=== PATIENT | male | born 1980 | race Caucasian/White ===

== ENCOUNTER 2021-04-07 10:27 | Emergency (ER) | payer OTHER, SELFPAY ==
[2021-04-07 10:45] VITALS: BP 128/86; PULSE 94; RESP 18; TEMP 35.7; O2SAT 99
--- NOTE | 2021-04-07 11:36 | ED_ITS ---
HPI - Eye Problem General Chief complaint: Eye Problems Stated complaint: Foreign object in lt eye Source: patient and RN notes reviewed Limitations: no limitations History of Present Illness HPI Narrative: The patient, who does not wear eyeglasses/contacts, presents with left eye discomfort. States he has a couple day history of left eye discomfort that began gradually as he walked outside. He complains of mild foreign body sensation that is migratory and went from the upper to lower lid. No injury, photophobia, discharge; symptoms are unimproved with OTC preps like eye flush. Related Data Home Medications Medication Instructions Recorded Confirmed Pepcid 04/07/21 amlodipine 04/07/21 atorvastatin 04/07/21 lisinopril 20 mg PO DAILY 04/07/21 04/07/21 Allergies Allergy/AdvReac Type Severity Reaction Status Date / Time No Known Allergies Allergy Verified 04/07/21 11:00 Review of Systems Review of Systems: General/Constitutional: No weight loss,fever Eyes: N0: Redness,discharge Ears/Nose/Throat: No: Epistaxis,ear discharge Respiratory: Denies: Hemoptysis Gastrointestinal: No Vomiting, Bleeding-rectal Skin: No Lumps, eruption Neurologic: No Focal Weakness,Sz Hematologic: Denies: Petechiae/Purpura Psychiatric: No: Suicida ideationl All Other Systems: Reviewed and Negative [facility] Comments At time of signature, agree with nursing past medical, surgical, social and family history. There is no relevant family history pertinent to the presenting complaint Exam Narrative: General Appearance: Well appearing, EYE: PERRLA , [id number] normal, EOMI, Lens normal, Normal corneas ,no fluorescein uptake, anterior chamber deep, Conjunctiva injection, no FB on double lid eversion Ears: External ear normal, Auditory canal normal Nose: Normal nose, Nares clear Mouth/Throat: Normal appearing, Normal lips, Supple, No adenopathy Respiratory: Airway patent, No respiratory distress Skin: Warm, Dry Neurological: A&O x3, Normal affect Course Vital Signs Vital signs: Vital Signs Temperature 96.3 F L 04/07/21 10:45 Pulse Rate 94 04/07/21 10:45 Respiratory Rate 18 04/07/21 10:45 Blood Pressure 128/86 04/07/21 10:45 Pulse Oximetry 99 04/07/21 10:45 Temperature 96.3 F L 04/07/21 10:45 Pulse Rate 94 04/07/21 10:45 Respiratory Rate 18 04/07/21 10:45 Blood Pressure 128/86 04/07/21 10:45 Pulse Oximetry 99 04/07/21 10:45 Discharge Plan Discharge Clinical Impression: Sensation of foreign body in eye Patient Disposition: Home, Self-Care Condition: Stable Instructions: Antibiotic Form Additional Instructions: See eye doctor, [employer]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
== END 2021-04-07 11:43 | disposition home or self-care (01) ==
PROVIDERS: Emergency Provider Emergency Medicine
DX: H57.12 Ocular pain, left eye (principal)
CPT/HCPCS: 99203; A9270; G0463